=== PATIENT | female | born 1990 | race Caucasian/White ===

== ENCOUNTER 2019-07-29 16:34 | Outpatient (RCR) | payer OTHER, SELFPAY ==
[2019-07-29 14:14] LABS: Hematocrit 36.4 % (37.0-47.0); Hemoglobin 11.9 g/dL (12.0-15.0)
[2019-07-29 14:17] LABS: Glucose 1 Hour PP 50gm Dose 95 mg/dL
[2019-07-29 15:04] LABS: HIV 1/2 Ab P24 Ag Result Negative (Negative)
[2019-07-29] MEDS: RHO(D) IMMUNE GLOBULIN 300 MCG SYRINGE IM (16:42)
[2019-07-30 08:18] LABS: Rapid Plasma Reagin Non-Reactive (NonReactive)
== END 2019-08-31 07:52 | disposition home or self-care (01) ==
LOC: ANHOBOP 16:34
PROVIDERS: Advanced Practice Midwife; PCP Obstetrics & Gynecology; Visit Provider Obstetrics & Gynecology
DX: Z36.89 Encounter for other specified antenatal screening (principal); Z29.13 Encounter for prophylactic Rho(D) immune globulin; O36.0990 Maternal care for other rhesus isoimmunization, unspecified trimester, not applicable or unspecified; Z3A.00 Weeks of gestation of pregnancy not specified
CPT/HCPCS: 36415; 82947; 84436; 84443; 85014; 85018; 86592; 86703; 90384; 96372; G0432; J2790

== ENCOUNTER 2019-10-20 10:59 | Inpatient (IN) | payer OTHER, SELFPAY ==
[2019-10-20] VITALS (44 sets, daily range): BP systolic 121–151; BP diastolic 59–110; PULSE 69–107; TEMP 36.5–36.8
[2019-10-20 11:55] LABS: Basophils Percent Auto 0.4 % (0.2-1.2); Eosinophils Percent Auto 0.1 % (0-4.4); Hematocrit 36.4 % (37.0-47.0); Hemoglobin 11.7 g/dL (12.0-15.0); Immature Granulocyte Absolute 0.04 K/mm3 (0.00-0.031); Immature Granulocyte Percent A 0.5 % (0-0.5); Lymphocytes Absolute Auto 1.68 K/mm3 (0.9-3.2); Lymphocytes Percent Auto 20.9 % (18.3-44.2); Mean Corpuscular HGB Conc 32.1 g/dl (32-36); Mean Corpuscular Hemoglobin 27.2 pg (26-34); Mean Corpuscular Volume 84.7 fl (80-100); Mean Platelet Volume 12.5 fl (7.4-10.4); Monocytes Absolute Auto 0.4 K/mm3 (0.1-0.6); Monocytes Percent Auto 5.3 % (2.6-8.5); Neutrophils Absolute Auto 5.9 K/mm3 (1.3-6.7); Neutrophils Percent Auto 72.8 % (45.5-73.1); Platelet Count Result 239 k/mm3 (150-375); Red Cell Distribution Width 14.3 % (11.5-14.5); White Blood Count 8.1 K/mm3 (4.5-10.0)
[2019-10-20 12:04] LABS: Alanine Aminotransferase 13 U/L (4-35); Albumin Level 3.7 g/dL (3.5-5.1); Alkaline Phosphatase 215 U/L (38-126); Aspartate Amino Transferase 24 U/L (14-36); Bilirubin,Total 0.2 mg/dL (0.2-1.3); Blood Urea Nitrogen 9 mg/dL (7-17); Carbon Dioxide 22 mmol/L (22-30); Chloride 108 mmol/L (98-107); Estimated Glomerular Filt Rate > 60; Glucose 97 mg/dL (65-105); Potassium 3.9 mmol/L (3.4-5.0); Sodium 134 mmol/L (137-145); Uric Acid 5.2 mg/dL (2.5-7.5)
[2019-10-20 12:06] LABS: Creatinine Urine 33.1 mg/dL; Total Protein Urine Random 11 mg/dL
[2019-10-20] MEDS: LACTATED RINGERS 1,000 ML 125 ML IV CONT (13:15)
[2019-10-20] MEDS: OXYTOCIN 30 UNITS/NS 500 ML 30 UNITS/500 ML BAG 6 UNITS IV CONT (13:21)
--- NOTE | 2019-10-20 13:39 | LDADM ---
This patient, Crystal Rosas, was admitted to Labor/Delivery/Recovery 109 on 10/20/19 at 11:00. Plans for labor, pain management and were discussed with patient. Patient/family oriented to hospital policies and general routines including ID bracelet, bed and alarms, visiting hours, pain management, procedures, bathroom and other care routines, personal items, smoking policy, room service/diet and guest tray routines, security routines, and visiting hours. Patient/Family are encouraged to report perceived risks to care and to ask questions if they do not understand what they are told or what they should do. See OBIX for further documentation.
--- NOTE | 2019-10-20 18:37 | WPDOBADMIT ---
Obstetrics - Admit Note Admission Note: record reviewed. No pertinent additions to the history and/or any subsequent changes in the physical findings that are not consistent with the expected course of the were found.41.3 weeks gestation with slightly elevated bp and proteinuria, asymptomatic, AROM 4/80/-2 large amount of clear odorless fluid Additions to the history and/or subsequent changes in the physical findings follow. None.
[2019-10-20] MEDS: OXYTOCIN 10 UNITS/ML VIAL 20 UNITS (21:43)
--- NOTE | 2019-10-20 22:01 | PM.OBPRVD ---
OB - Delivery Note Procedure Delivery date: 10/20/19 Procedure: vaginal delivery events: Induced HTN Intrapartal events: None Induction method: AROM and per pitocin protocol Delivery monitor: external FHT and external uterine Route of delivery: Laceration description: Perineal - 2nd Degree Delivery repair: vicryl Specimen: No Estimated blood loss (mL): 313 Anesthesia type: Local (for repair only) Disposition: other () Complications: shoulder and body slow to deliver andres and legs back. delivered slowly and was skin to skin with mom Baby Date of : 10/19/19 Time of : 21:36 Weeks of gestation at delivery: 41 Infant gender: Female Weight (pounds): 8 Weight (ounces): 0 presentation: vertex position: Left Occiput Transverse Placenta delivery description: Spontaneous cord vessel description: 3 Vessels and Clamped/Cut score one minute: 8 score five minutes: 9
[2019-10-20] MEDS: OXYTOCIN 30 UNITS/NS 500 ML 30 UNITS/500 ML BAG 125 UNITS IV CONT (22:11)
[2019-10-20] MEDS: IBUPROFEN 600 MG TABLET PO (22:47)
[2019-10-21] VITALS: BP 137/72; PULSE 76
[2019-10-21] MEDS: WITCH HAZEL 40 PADS 1 PAD TOPICAL (00:16)
[2019-10-21] MEDS: BENZOCAINE 20% AER SPR (*SP) 56 GM CAN 1 SPRAY TOPICAL (00:16)
[2019-10-21 00:20] VITALS: BP 139/72; PULSE 88; RESP 14; TEMP 36.6; O2SAT 99
--- NOTE | 2019-10-21 00:20 | OBPPTRN ---
Patient transferred to post room #284 via wheelchair. Support person present. Oriented to unit, room, information board, rooming in, admission packet and security measures. Patient verbalizes understanding. with patient.
[2019-10-21] MEDS: IBUPROFEN 600 MG TABLET PO ×2 (05:11→12:53)
[2019-10-21 06:06] LABS: Hematocrit 28.9 % (37.0-47.0); Hemoglobin 9.5 g/dL (12.0-15.0)
[2019-10-21] MEDS: LEVOTHYROXINE SODIUM 25 MCG TABLET PO (06:45)
[2019-10-21 07:35] LABS: Rapid Plasma Reagin Non-Reactive (NonReactive)
[2019-10-21 07:40] VITALS: BP 130/78; PULSE 80; RESP 16; TEMP 36.8; O2SAT 98
--- NOTE | 2019-10-21 07:46 | PM.OBPNVD ---
OB - PN: Subj Subjective Date/time seen: 10/21/19 07:46 OB - PN: Obj Data Labs CBC & Chem 7: 10/21/19 05:24 10/20/19 11:39 Labs: Laboratory Results - last 24 hr 10/20/19 10/20/19 10/20/19 11:39 11:39 11:39 WBC 8.1 RBC 4.30 Hgb 11.7 L Hct 36.4 L MCV 84.7 MCH 27.2 MCHC 32.1 RDW 14.3 Plt Count 239 MPV 12.5 H Immature Gran % (Auto) 0.5 Neut % (Auto) 72.8 Lymph % (Auto) 20.9 Eddy % (Auto) 5.3 Eos % (Auto) 0.1 Baso % (Auto) 0.4 Lymph # (Auto) 1.68 Eddy # (Auto) 0.4 Eos # (Auto) 0.0 Baso # (Auto) 0.0 Abs Immat Gran (auto) 0.04 H Absolute Neuts (auto) 5.9 Absolute Nucleated RBC 0.0 Nucleated RBC % 0.0 Sodium 134 L Potassium 3.9 Chloride 108 H Carbon Dioxide 22 BUN 9 Creatinine 0.60 L Estim Creat Clear Calc Not Reportable Estimated GFR > 60 Glucose 97 Uric Acid 5.2 Calcium 9.0 Total Bilirubin 0.2 AST 24 ALT 13 Alkaline Phosphatase 215 H Total Protein 7.0 Albumin 3.7 U Random Total Protein 11 Urine Creatinine 33.1 RPR Blood Type Antibody Screen 10/20/19 10/20/19 10/21/19 13:05 13:40 05:24 WBC RBC Hgb 9.5 L Hct 28.9 L MCV MCH MCHC RDW Plt Count MPV Immature Gran % (Auto) Neut % (Auto) Lymph % (Auto) Eddy % (Auto) Eos % (Auto) Baso % (Auto) Lymph # (Auto) Eddy # (Auto) Eos # (Auto) Baso # (Auto) Abs Immat Gran (auto) Absolute Neuts (auto) Absolute Nucleated RBC Nucleated RBC % Sodium Potassium Chloride Carbon Dioxide BUN Creatinine Estim Creat Clear Calc Estimated GFR Glucose Uric Acid Calcium Total Bilirubin AST ALT Alkaline Phosphatase Total Protein Albumin U Random Total Protein Urine Creatinine RPR Non-reactive Blood Type B Negative Antibody Screen Negative OB - PN A/P Plan day: 1 Plan: routine care Time Spent With Patient Time: Total time spent is greater than 50% in coordination of care (as documented) at patient's floor/unit and/or counseling patient: Review of Systems Review of Systems: All systems reviewed & are unremarkable except as noted in HPI and below Constitutional: Constitutional: Reports as per HPI Cardiovascular: Cardiovascular: Reports as per HPI Respiratory: Respiratory: Reports as per HPI Gastrointestinal: Gastrointestinal: Reports as per HPI Exam Const: General: comfortable Resp: Effort & Inspection: normal respiratory effort Cardio: Rate: regular rate Psych: Appearance: grossly normal Affect: normal affect Attitude: cooperative Judgement: Good judgement present (Psych)
[2019-10-21] MEDS: MULTIVIT/MIN/PREN/FOL AC/IRON TABLET 1 TAB PO (08:30)
[2019-10-21] MEDS: POLYSACCHARIDE IRON COMPLEX 150 MG CAPSULE PO ×2 (08:30→16:30)
[2019-10-21] MEDS: ACETAMINOPHEN 325 MG TABLET 650 MG PO (09:56)
--- NOTE | 2019-10-21 15:15 | PC.NURSE ---
Consulted with patient, mother reports difficulties and discomfort with latching. Both nipples and areolas have bruising from incorrect latch. Reviewed feeding cues, frequencies, duration of feedings, feeding elimination flow sheet, and signs of adequate intake. Demonstrated stimulation techniques to wake infant for feeding. Assisted with infant to breast. Reviewed positioning/alignment in cross cradle, holding breast in U hold and guided asymmetrical latch on. Discussed rational for each. Several attempts made, Infant was unable to latch correctly. was eagerly making attempts. Offered and explained the nipple shield. Nipple shield provided to mother due to latch issues. Instructions given on application and cleaning of shield. Discussed nipple shield precautions and possible complications. Patient able to return demonstration on proper application of shield. Discussed the need to initiate pumping if continues to nurse with the shield. Patient verbalizes understanding. With shield in place was able to latch correctly. nursed eagerly with bursts of steady draws and occasional swallowing noted, followed with long pausing. Reviewed signs of a correct latch, effective nursing and suck swallow ratio. Nipple care reviewed. Suggested to stimulate while feeding to keep awake and nursing for increased intake and stimulation for milk supply. Instructed mother to call out for RN assistance if she is unable to latch for feeding or she has discomfort with nursing. Instructed feeding should be initiated three hours from start of last feeding or if feeding cues are noted before. Mother voiced understanding of information shared.
[2019-10-21] MEDS: DOCUSATE SODIUM 100 MG CAPSULE PO (16:30)
[2019-10-21 20:30] VITALS: BP 129/79; PULSE 85; RESP 16; TEMP 37; O2SAT 99
[2019-10-22] MEDS: IBUPROFEN 600 MG TABLET PO (04:18)
--- NOTE | 2019-10-22 07:48 | P.PNOB_ITS ---
OB - PN: Subj Subjective Date/time seen: 10/22/19 07:48 Patient comments: no complaints baby status: doing well OB - PN: Obj Data Labs CBC & Chem 7: 10/21/19 05:24 10/20/19 11:39 OB - PN A/P Plan day: 2 Plan: routine care, discharge home and other (Follow up 4 weeks) Time Spent With Patient Time: Total time spent is greater than 50% in coordination of care (as documented) at patient's floor/unit and/or counseling patient: Time with patient: less than 15 minutes Review of Systems Review of Systems: All systems reviewed & are unremarkable except as noted in HPI and below Exam 2 Narrative: Exam Narrative: Fundus firm and vaginal flow controlled Const: General: comfortable Resp: Effort & Inspection: normal respiratory effort Psych: Appearance: grossly normal Affect: normal affect Attitude: cooperative Judgement: Good judgement present (Psych)
[2019-10-22] MEDS: POLYSACCHARIDE IRON COMPLEX 150 MG CAPSULE PO (07:52)
[2019-10-22] MEDS: LEVOTHYROXINE SODIUM 25 MCG TABLET PO (07:52)
[2019-10-22] MEDS: DOCUSATE SODIUM 100 MG CAPSULE PO (07:53)
[2019-10-22] MEDS: MULTIVIT/MIN/PREN/FOL AC/IRON TABLET 1 TAB PO (07:53)
[2019-10-22 08:15] VITALS: BP 131/85; PULSE 76; RESP 18; TEMP 36.9; O2SAT 95
--- NOTE | 2019-10-22 09:00 | PC.NURSE ---
Observed mother is able to independently latch with appropriate positioning/alignment. She denies any nipple discomfort, is feeding as required and waking infant to feed if needed. continues to use the nipple shield for all feedings. is more awake and eagerly feeding the last several feedings. Mother is now supplementing after all feedings and will pump for 10 minutes. has had several feedings in the past 24 hours followed with supplementation, and is currently meeting outcomes for weight, output, jaundice and feeding frequencies. Mother states she feels confident to continue current feeding plan at home. Mother has a double electric pump for home use. Discussed weaning from supplementation. Reviewed transition to breast milk, signs of adequate intake, and engorgement/relief. Instructed to call ICP if intake/output less than required. Reviewed regular medications mother is taking. Information provided per Christina. Reviewed community resources on the [facility] website and in the Mom/Baby guide. Information on outpatient services provided. Mother has no further questions at this time.
[2019-10-23 09:26] VITALS: BP 133/75; PULSE 80; RESP 18; TEMP 36.6
--- NOTE | 2019-10-28 07:29 | PM.OBDSVD ---
DS: Diagnosis Admitting Diagnosis Admitting Diagnosis: Encounter for supervision of normal , unspecified, third trimester OB - DS: Summary OB Procedures : None OB Procedures Intrapartum: Spontaneous Vag Delivery OB Procedures: : None Time Spent with Patient Time attestation: Total time spent providing and/or coordinating discharge services: Discharge Plan Discharge Attending physician on discharge: Bernadette Pineda Consulting providers: Bernadette Pineda ; Jayashree Armstrong Discharging Clinician: Jayashree Armstrong Patient Disposition: Home, Self-Care Activity: pelvic rest Diet: as tolerated Discharge Instructions: Education: Mom and Baby Guide Given to: Mother Follow-Up: Call your delivering provider's office for an appointment to be seen in: 1 Week for blood pressure check and then in 4 weeks for check up Mom [facility] baby [facility] the follow-up appointment. Appointment Date/Time: October 23, 2019 at 9:00 am What to expect at your follow-up visit: Blood Pressure Check Physical Assessment Call [phone] if you are unable to keep your appointment time. BREAST CARE: 1. Wear a snug supportive bra. 2. For engorgement discomfort: Breast Feeding: A. Apply warm moist washcloths B. Express milk as needed to relieve engorgement C. Wear loose clothing 3. For sore nipples: A. Identify correct latch-on B. Apply warm moist washcloths before and after nursing C. Air dry nipples after nursing D. May apply Lansinoh cream to nipples PERINEAL CARE: 1. Until bleeding stops, use your yesenia bottle after urinating 2. Change your pad frequently throughout the day 3. You may take sitz baths several times a day (fill your bathtub with warm water and soak for 20 minutes.) Do NOT bathe in the water 4. No tub baths until seen by your physician - You may shower ACTIVITY: 1. Rest as much as possible. 2. Do not exercise or lift anything heavier than your baby (such as laundry or other children.) 3. Avoid stairs or driving as much as possible. 4. Do not put anything into the vagina. No douching, tampons, or sexual activity until seen by physician. NOTIFY PHYSICIAN IF YOU HAVE ANY QUESTIONS OR IF ANY OF THE FOLLOWING SYMPTOMS OCCUR: 1. If your perineum becomes red, swollen, or more painful than what you have experienced in the hospital. 2. If your vaginal bleeding becomes foul smelling. 3. If your vaginal bleeding becomes more heavy than a period or if your bleeding changes from pink to bright red. However, you may pass an occasional walnut-sized clot once or twice for the first week . 4. If you experience a sharp, shooting pain in your calves. 5. If you discover a hard, reddened area on your breast or if you experience flu-like symptoms. DIET: 1. Eat regular, well-balanced meals. 2. Drink plenty of fluids daily. If , drink to thirst. Stand Alone Forms: General Discharge Information Follow-up/Referrals: Bernadette Pineda CNM [Certified Nurse [employer]ateman] - (Appt in 1 week for blood pressure check) Discharge Medications: Continued levothyroxine [Synthroid] 25 mcg Tablet 25 mcg PO DAILY RF: 0 PNV cmb#95-ferrous fumarate-FA [] 28 mg iron- 800 mcg Tablet 1 tablet PO DAILY RF: 0 Date of admission: 10/20/19 11:00 Primary Care Provider: UNKNOWN,DOCTOR Admitting Provider: Dominique Lopez Discharge Date/Time: 10/22/19 11:25 Attending physician on admission: Dominique Lopez
== END 2019-10-22 11:25 | disposition home or self-care (01) | DRG 807 ==
LOC: ANHOBPP 11:05 → ANHLDR 12:31 → ANHOB2 10-21 00:25
PROVIDERS: Advanced Practice Midwife; Admitting Provider Obstetrics & Gynecology; Visit Provider Obstetrics & Gynecology
DX: O13.4 Gestational [pregnancy-induced] hypertension without significant proteinuria, complicating childbirth (principal); Z37.0 Single live birth; Z3A.41 41 weeks gestation of pregnancy; O70.1 Second degree perineal laceration during delivery
CPT/HCPCS: 36415; 80053; 82570; 84156; 84550; 85014; 85018; 85025; 86592; 86850; 86900; 86901; A9270; J2590; J7120

== ENCOUNTER 2022-05-14 06:32 | Outpatient (RCR) | payer OTHER, SELFPAY ==
[2022-05-14] MEDS: RHO(D) IMMUNE GLOBULIN 300 MCG/2 ML SYRINGE IM (18:11)
== END 2022-08-12 23:59 | disposition home or self-care (01) ==
LOC: ANHLAB 06:32
PROVIDERS: Visit Provider Advanced Practice Midwife
DX: Z29.13 Encounter for prophylactic Rho(D) immune globulin (principal); O26.859 Spotting complicating pregnancy, unspecified trimester; O36.0190 Maternal care for anti-D [Rh] antibodies, unspecified trimester, not applicable or unspecified; Z3A.00 Weeks of gestation of pregnancy not specified
CPT/HCPCS: 36415; 85461; 90384; 96372; J2790

== ENCOUNTER 2022-09-25 08:20 | Outpatient (RCR) | payer OTHER, SELFPAY ==
[2022-09-25 10:32] LABS: Hematocrit 34.5 % (37.0-47.0); Hemoglobin 11.3 g/dL (12.0-15.0)
[2022-09-25 10:41] LABS: Glucose 1 Hour PP 50gm Dose 98 mg/dL
[2022-09-25 11:24] LABS: HIV 1/2 Ab P24 Ag Result Negative (Negative)
[2022-09-26] MEDS: RHO(D) IMMUNE GLOBULIN 300 MCG/2 ML SYRINGE IM (16:10)
== END 2022-12-24 23:59 | disposition home or self-care (01) ==
LOC: ANHLAB 08:20
PROVIDERS: Visit Provider Advanced Practice Midwife
DX: Z11.4 Encounter for screening for human immunodeficiency virus [HIV] (principal); Z29.13 Encounter for prophylactic Rho(D) immune globulin; O36.0130 Maternal care for anti-D [Rh] antibodies, third trimester, not applicable or unspecified; Z3A.00 Weeks of gestation of pregnancy not specified
CPT/HCPCS: 36415; 82947; 84443; 85014; 85018; 85461; 86703; 86850; 86900; 86901; 90384; 96372; G0432; J2790

== ENCOUNTER 2022-12-04 05:17 | Inpatient (IN) | payer OTHER, SELFPAY ==
[2022-12-04] VITALS (63 sets, daily range): BP systolic 84–138; BP diastolic 31–95; PULSE 79–161; RESP 16–18; TEMP 36.8–36.9; O2SAT 97–100; BMI 42.9
--- NOTE | 2022-12-04 05:44 | PC.NURSE ---
Called Dr. Lopez about patient coming in with complaints of leaking of fluid and cramping. ROM plus positive. Orders to admit patient. Orders for low dose pitocin.
--- NOTE | 2022-12-04 06:21 | PC.NURSE ---
report given to Carie, RN
--- NOTE | 2022-12-04 06:25 | LDADM ---
This patient, Crystal Rosas, was admitted to Labor/Delivery/Recovery 107 on 12/04/22 at 05:17. Plans for labor, pain management and were discussed with patient. Patient/family oriented to hospital policies and general routines including ID bracelet, bed and alarms, visiting hours, pain management, procedures, bathroom and other care routines, personal items, smoking policy, room service/diet and guest tray routines, security routines, and visiting hours. Patient/Family are encouraged to report perceived risks to care and to ask questions if they do not understand what they are told or what they should do. See OBIX for further documentation.
[2022-12-04 06:34] LABS: Basophils Percent Auto 0.2 % (0.2-1.2); Eosinophils Percent Auto 0.4 % (0-4.4); Hematocrit 35.4 % (37.0-47.0); Hemoglobin 11.6 g/dL (12.0-15.0); Immature Granulocyte Absolute 0.06 K/mm3 (0.00-0.031); Immature Granulocyte Percent A 0.6 % (0-0.5); Lymphocytes Absolute Auto 1.84 K/mm3 (0.9-3.2); Lymphocytes Percent Auto 18.8 % (18.3-44.2); Mean Corpuscular HGB Conc 32.8 g/dl (32-36); Mean Corpuscular Hemoglobin 28.2 pg (26-34); Mean Corpuscular Volume 85.9 fl (80-100); Mean Platelet Volume 11.9 fl (7.4-10.4); Monocytes Absolute Auto 0.5 K/mm3 (0.1-0.6); Monocytes Percent Auto 5.2 % (2.6-8.5); Neutrophils Absolute Auto 7.3 K/mm3 (1.3-6.7); Neutrophils Percent Auto 74.8 % (45.5-73.1); Platelet Count Result 225 k/mm3 (150-375); Red Blood Count 4.12 M/mm3 (4.2-5.4); Red Cell Distribution Width 13.7 % (11.5-14.5); White Blood Count 9.8 K/mm3 (4.5-10.0)
[2022-12-04] MEDS: LACTATED RINGERS 1,000 ML 125 ML IV CONT (09:18)
[2022-12-04] MEDS: OXYTOCIN 30 UNITS/NS 500 ML 30 UNITS/500 ML BAG IV CONT (09:18)
--- NOTE | 2022-12-04 10:15 | WPDOBADMIT ---
Obstetrics - Admit Note Admission Note: record reviewed. No pertinent additions to the history and/or any subsequent changes in the physical findings that are not consistent with the expected course of the were found. SROM at home, admitted to LD, augment with pitocin, anticipate vaginal delivery Additions to the history and/or subsequent changes in the physical findings follow. None.
[2022-12-04 12:11] LABS: Rapid Plasma Reagin Non-Reactive (NonReactive)
--- NOTE | 2022-12-04 13:00 | P.PCNOB_ITS ---
OB - Delivery Note Procedure Delivery date: 12/04/22 Procedure: Events: Chronic Hypertension Induction method: None Delivery augmentation: Pitocin Delivery monitor: External FHT and External Uterine Route of delivery: Laceration Description: None Specimen: No Quantitative Blood Loss (ml): 110 Anesthesia type: None [place] Baby Date of : 12/04/22 Time of : 12:47 Weeks of gestation at delivery: 38 gender: Female Weight (pounds): 7 Weight (ounces): 9 position: Left Occiput Anterior (compound anterior and posterior arms) Placenta delivery description: Spontaneous Cord Vessel Description: 3 Vessels, Clamped/Cut and Delayed Cord Clamping score one minute: 8 score five minutes: 9 Narrative: mother and baby skin to skin in stable condition
[2022-12-04] MEDS: OXYTOCIN 30 UNITS/NS 500 ML 30 UNITS/500 ML BAG 125 UNITS IV CONT (13:28)
--- NOTE | 2022-12-04 15:40 | PC.NURSE ---
Patient transferred to post room #285 via ( w/c ). Support person present. Oriented to unit, room, information board, rooming in, admission packet and security measures. Patient verbalizes understanding.
[2022-12-04] MEDS: DOCUSATE SODIUM 100 MG CAPSULE PO (16:03)
[2022-12-04] MEDS: IBUPROFEN 600 MG TABLET PO (16:37)
[2022-12-05] MEDS: IBUPROFEN 600 MG TABLET PO (01:15)
[2022-12-05 04:54] LABS: Hematocrit 31.2 % (37.0-47.0); Hemoglobin 10.1 g/dL (12.0-15.0)
[2022-12-05] MEDS: LEVOTHYROXINE SODIUM 75 MCG TABLET PO (07:00)
--- NOTE | 2022-12-05 07:35 | PM.OBPNVD ---
OB - PN: Subj Subjective Date/time seen: 12/05/22 07:35 vaginal delivery day 1 no complaints OB - PN: Obj Data Labs 12/05/22 03:36 Labs: Laboratory Results - last 24 hr 12/04/22 12/05/22 06:17 03:36 Hgb 10.1 L Hct 31.2 L RPR Non-reactive Blood Type B Negative Antibody Screen Positive Antibody Identification Inconclusive Antigen Identification Cancelled LILLIANA, IgG Interpret Not Performed LILLIANA, Poly Interpret Neg LILLIANA, Complement Interp Not Performed OB - PN A/P Plan day: 1 Plan: routine care and discharge home Time Spent With Patient Time: Total time spent is greater than 50% in coordination of care (as documented) at patient's floor/unit and/or counseling patient: Review of Systems Review of Systems: All systems reviewed & are unremarkable except as noted in HPI and below Exam Const: General: cooperative, healthy appearing and comfortable Resp: Effort & Inspection: normal respiratory effort GI: Inspection: normal to inspection Skin: General skin exam: normal color Extrem: Right lower extremity: normal to inspection Left lower extremity: normal to inspection Psych: Appearance: grossly normal
--- NOTE | 2022-12-05 07:38 | PM.OBDSVD ---
DS: Admitting Diagnosis Discharge Date 12/05/22 Admitting Diagnosis SROM, labor DS: Discharge Diagnosis Discharge Diagnosis (1) Vaginal delivery: Code(s): O80 - Encounter for full-term uncomplicated delivery Status: Acute OB - DS: Summary OB Procedures : None OB Procedures Intrapartum: Spontaneous Vag Delivery OB Procedures: : None Time Spent with Patient Time attestation: Total time spent providing and/or coordinating discharge services: DS: Data Data Completed and Pending Labs on day of discharge: Labs from last 24 hours 12/05/22 12/04/22 03:36 06:17 Hgb 10.1 L Hct 31.2 L RPR Non-reactive Blood Type B Negative Antibody Screen Positive Antibody Identification Inconclusive Antigen Identification Cancelled LILLIANA, IgG Interpret Not Performed LILLIANA, Poly Interpret Neg LILLIANA, Complement Interp Not Performed Discharge Plan Discharge Attending physician on discharge: Dominique Lopez Discharging Clinician: Bernadette Pineda Patient Disposition: Home, Self-Care Activity: pelvic rest Diet: regular Patient Instructions: Antibiotic Form Stand Alone Forms: General Discharge Information Follow-up/Referrals: Bernadette Pineda CNM [Primary Care Provider] - 4 Weeks Discharge Medications: New ibuprofen 600 mg Tablet 600 mg PO Q6H PRN (Reason: Cramping) Qty: 30 0RF Continued levothyroxine [Synthroid] 25 mcg Tablet 75 mcg PO DAILY PNV cmb#95-ferrous fumarate-FA [] 28 mg iron- 800 mcg Tablet 1 tablet PO DAILY Discontinued Low-Dose Aspirin 81 mg Tablet 81 mg PO DAILY Date of admission: 12/04/22 05:17 Primary Care Provider: Bernadette Pineda Admitting Provider: Dominique Lopez Attending physician on admission: Dominique Lopez Condition: Stable
[2022-12-05] MEDS: MULTIVIT/MIN/PREN/FOL AC/IRON TABLET 1 TAB PO (08:32)
[2022-12-05] MEDS: DOCUSATE SODIUM 100 MG CAPSULE PO (08:32)
[2022-12-05 09:00] VITALS: BP 126/61; PULSE 66; RESP 16; TEMP 37; O2SAT 99
--- NOTE | 2022-12-05 10:47 | PC.NURSE ---
[id number] Introductions were made, then consulted with patient to assess needs related to . Mother led the conversation with everything is going well. Resources provided for inpatient and outpatient services with the feeding sheet, mom/baby guide and name written on the white board. Mother voiced understanding of information, there's is company at this time, and will call if there is a request for assistance. RN Encouraged S2S, stimulating infant for frequently.
[2022-12-05 12:51] VITALS: BP 127/62; PULSE 88; RESP 16; TEMP 37.6; O2SAT 98
--- NOTE | 2022-12-05 14:00 | PC.NURSE ---
Patient viewed the discharge video Mother & Baby Care, The First Two Weeks . Patient was given the opportunity and encouraged to ask questions. Patient verbalized understanding of information shared and has been given the mother/baby guide for home reference.
--- NOTE | 2022-12-05 15:20 | PC.NURSE ---
1421 - Mother requested a latch assessment. RN encouraged [id number], changing positioning, and stimulating for wakefulness. [id number] Mother works well with her and was stimulated for wakefulness and attempted at the breast once feeding cues were visualized. latched effectively to both breast using the football position, infant sucked once, then held the nipple in mouth. Reviewed working with , supporting breast and how to protect the nipples with an optimal deep latch, good positioning, and good hand washing. Encouraged understanding the benefits of skin to skin, responding to feeding cues, frequencies of feeding 8-12 times in 24 hours (approximately 2-3 hours), duration of feedings, milk production, intake/output feeding sheet and signs of adequate intake encouraging swallowing at the breast. Reviewed positioning and alignment, supporting breast, off-centered (asymmetrical latch) and leading with the chin with big, open, wide gape. Education given to mother of how to visualize suck/swallow ratios and listen for drinking at the breast. Infant did not maintain effective . Nipple care reviewed with optimal latch, good positioning and using clean hands when feeding her and touching her breast. Mother led the conversation with her experience and plan to feed her so far and her ability to breastfeed without discomfort. Reminded parents to use good handwashing technique to prevent infection. Mother is feeding appropriately for growth of and understands stimulating infant to eat if needed. Infant has had adequate feedings in the last 24 hours meets the outcomes for weight, output, and jaundice at this time. Mother states she is confident to continue effectively her infant at home, when to call for assistance and denies any additional assistance or education at this time. Reinforced understanding of milk production, transition of milk, signs of adequate intake, transition of stool, prevention/relief of engorgement, responsive watching for feeding cues, the different methods of stimulating to breastfeed 2-3 hours after the start of the last feeding, community resources, medication information reviewed per [employer] and when to call a provider using the resource of the mom and baby guide/[facility] website. Parents voiced understanding of the education shared. Reported to the primary RN.
[2022-12-07 11:43] VITALS: BP 132/89; PULSE 73; RESP 18; TEMP 36.5; O2SAT 100
== END 2022-12-05 17:17 | disposition home or self-care (01) | DRG 807 ==
LOC: ANHLDR 05:50 → ANHOB2 15:40
PROVIDERS: Admitting Provider Obstetrics & Gynecology; PCP Advanced Practice Midwife; Visit Provider Obstetrics & Gynecology
DX: O10.92 Unspecified pre-existing hypertension complicating childbirth (principal); Z37.0 Single live birth; O32.6XX0 Maternal care for compound presentation, not applicable or unspecified; Z3A.38 38 weeks gestation of pregnancy
CPT/HCPCS: 36415; 84112; 85014; 85018; 85025; 86592; 86850; 86880; 86900; 86901; 86902; A9270; J2590; J7120